=== PATIENT | male | born 1960 | race Caucasian/White ===

== ENCOUNTER → 2020-05-18 | Outpatient (CLI) | payer BC ==
--- NOTE | 2020-05-18 14:25 | US ---
EXAMINATION TYPE: US carotid duplex BILAT DATE OF EXAM: 05/18/2020 COMPARISON: CLINICAL HISTORY: H53.9 UNSPECIFIED VISUAL DISTURBANCE. Patient states having blurred vision. No HTN. EXAM MEASUREMENTS: RIGHT: Peak Systolic Velocity (PSV) cm/sec ----- Right CCA: 141.5 ----- Right ICA: 110.8 ----- Right ECA: 139.8 ICA/CCA ratio: 0.8 RIGHT: End Diastole cm/sec ----- Right CCA: 36.5 ----- Right ICA: 13.7 ----- Right ECA: 29.4 LEFT: Peak Systolic Velocity (PSV) cm/sec ----- Left CCA: 147.0 ----- Left ICA: 118.9 ----- Left ECA: 111.3 ICA/CCA ratio: 0.8 LEFT: End Diastole cm/sec ----- Left CCA: 42.6 ----- Left ICA: 43.0 ----- Left ECA: 19.2 VERTEBRALS (direction of flow): Right Vertebral: Antegrade Left Vertebral: Antegrade Rhythm: Normal No significant stenosis. Plaque seen in distal left CCA. No wall thickening. Elevated right distal CCA, Right ECA, left mid CCA and left distal CCA velocities. Grayscale, color Doppler, spectral Doppler imaging performed of the carotid arteries. Waveform analys is does not show significant stenosis of the proximal internal carotid arteries. There is atheromatou s change present within the carotid arteries. IMPRESSION: No hemodynamic significant stenosis of the proximal internal carotid arteries by Doppler criteria, an indirect measurement of carotid stenosis Criteria for Assigning % of Stenosis / Diameter reduction (Estimation based on the indirect measurements of the internal carotid artery velocities (ICA PSV). 1. Normal (no stenosis)=ICA PSV < 125 cm/s: ratio < 2.0: ICA EDV<40 cm/s. 2. Less than 50% stenosis=ICA PSV < 125 cm/s: ratio < 2.0: ICA EDV<40 cm/s. 3. 50 to 69% stenosis=ICA PSV of 125 to 230 cm/s: ration 2.0 ? 4.0: ICA EDV 40-100 cm/s. 4. Greater than 70% stenosis to near occlusion= ICA PSV > 230 cm/s: ratio > 4.0: ICA EDV > 100 cm/s. 5. Near occlusion= ICA PSV velocities may be low or undetectable: variable ratio and ICA EDV. 6. Total occlusion=unable to detect flow.
--- NOTE | 2020-05-19 10:00 | ECHOF ---
Referral Reason:H53.9 MEASUREMENTS -------- HEIGHT: 172.7 cm WEIGHT: 83.9 kg BP: 128/70 RVIDd: 3.0 cm (< 3.3) IVSd: 1.3 cm (0.6 - 1.1) LVIDd: 4.7 cm (3.9 - 5.3) LVPWd: 1.3 cm (0.6 - 1.1) IVSs: 1.5 cm LVIDs: 3.1 cm LVPWs: 1.8 cm LA Diam: 3.2 cm (2.7 - 3.8) LAESV Index (A-L): 19.52 ml/m Ao Diam: 3.4 cm (2.0 - 3.7) AV Cusp: 2.0 cm (1.5 - 2.6) MV EXCURSION: 17.918 mm (> 18.000) MV EF SLOPE: 118 mm/s (70 - 150) EPSS: 0.5 cm MV E Andre: 0.94 m/s MV DecT: 204 ms MV A Andre: 0.65 m/s MV E/A Ratio: 1.44 AR PHT: 664 ms RAP: 5.00 mmHg RVSP: 30.27 mmHg FINDINGS -------- Sinus rhythm. This was a technically good study. The left ventricular size is normal. There is mild concentric left ventricular hypertrophy. Overa ll left ventricular systolic function is normal with, an EF between 60 - 65 %. The right ventricle is normal in size. Normal LA size by volume 22+/-6 ml/m2. The right atrium is normal in size. Interatrial and interventricular septum intact. There is mild aortic valve sclerosis. There is mild aortic regurgitation. The mitral valve is normal. Mild tricuspid regurgitation present. Right ventricular systolic pressure is normal at < 35 mmHg. The pulmonic valve was not well visualized. The aortic root size is normal. Normal inferior vena cava with normal inspiratory collapse consistent with estimated right atrial pre ssure of 5 mmHg. There is no pericardial effusion. CONCLUSIONS -------- 1. The left ventricular size is normal. 2. There is mild concentric left ventricular hypertrophy. 3. Overall left ventricular systolic function is normal with, an EF between 60 - 65 %. 4. There is mild aortic valve sclerosis. 5. There is mild aortic regurgitation. 6. Mild tricuspid regurgitation present. 7. There is no pericardial effusion. [employer]: Ronda Thurston RDCS
== END ==
LOC: RADECHMAIN 12:08
PROVIDERS: ATTEND Family Medicine
DX: I08.2 Rheumatic disorders of both aortic and tricuspid valves (principal)
CPT/HCPCS: 93306; 93880

== ENCOUNTER 2020-05-23 10:22 | Day surgery (SDC) | payer BC ==
[2020-05-20 11:16] VITALS: BMI 28.1
[~2020-05-23 10:22] MED LIST: LIDOCAINE 1% (10MG/ML) FOR IV START INTRADERMA PRN
[2020-05-23 10:35] LABS: Glucose,Whole Blood 149 mg/dL (75-99)
[2020-05-23 10:37] VITALS: TEMP 98
[2020-05-23] MEDS: LACTATED RINGERS 1,000 ML IV SCH ×2 (10:50→11:39)
[2020-05-23] MEDS ORDERED: PROPOFOL 10 MG/ML 20 ML VIAL IV ONE (11:41)
[2020-05-23] MEDS ORDERED: LIDOCAINE 1% INJ 10MG/ML (20 ML MDV) ONE (11:41)
--- NOTE | 2020-05-23 12:30 | P.PCN ---
Date of Procedure: 05/23/20 Description of Procedure: Brief history: Patient is a pleasant 59-year-old male presenting for outpatient EGD and colonoscopy for evaluation of melena and screening for malignant neoplasm of the colon. Remote history of colonoscopy in the past. Patient previously has had blood per rectum which he attributes to fissure. No family history of colon cancer. He does report epigastric and periumbilical pain. Procedure performed: Esophagogastroduodenoscopy with biopsy Colonoscopy with polypectomy Estimated blood loss: Minimal. Preoperative diagnosis: Melena, screening for malignant neoplasm of the colon, epigastric and periumbilical pain, remote history of colonoscopy Anesthesia: MAC Procedure: After informed consent was obtained from the patient was brought into the endoscopy unit and IV sedation was administered by anesthesia under continuous monitoring. Initially upper endoscopy was done. The Olympus GF 190 video endoscope was inserted into the mouth and esophagus intubated without any difficulty and was gradually advanced into the stomach and duodenum and carefully examined. The bulb and second part of the duodenum appeared normal, with biopsies taken. The scope was then withdrawn into the stomach adequately insufflated with air and upon careful examination the antrum and body, cardia and fundus appeared normal, except for some mild scattered erythema with biopsies taken. The scope was then withdrawn into the esophagus. The GE junction was located at 40 cm to the incisors And biopsy. It appeared regular with no erythema erosions or ulcerations. Rest of the esophagus appeared normal. Patient tolerated the procedure well. At this time the patient continued to remain sedation. Initial digital rectal examination was normal. Olympus CF 190 video colonoscope was then inserted into the rectum and gradually advanced to the cecum without any difficulty. Careful examination was performed as the scope was gradually being withdrawn. The prep was excellent. The cecum, ascending colon, transverse colon, descending colon, sigmoid colon and rectum appeared normal. 2 diminutive polyps measuring 1-2 mm in size removed from the transverse colon and descending colon with cold forcep polypectomy. 2 flat polyps removed with cold snare polypectomy from the splenic flexure measuring 4 mm in size and the sigmoid colon measuring 5 mm in size. Retroflexion was performed in the rectum and no lesions were noted, Low-grade internal hemorrhoids. Patient tolerated the procedure well. Impression: 1. Mild gastritis. Biopsies of the duodenum, antrum body and GE junction. 2. 2 polyps removed with cold snare polypectomy from the splenic flexure and sig moid colon. 2 diminutive polyps removed with cold forcep polypectomy from the transverse colon and descending colon. Low-grade internal hemorrhoids. Recommendations: Findings of this examination were discussed with the patient as well as his family. Okay to resume diet. Okay to resume medications. Await pathology from biopsies and polypectomy. Follow-up with primary care physician as previously scheduled.
[2020-05-23 12:49] VITALS: BP 126/79; PULSE 53; RESP 20
== END 2020-05-23 12:55 | disposition home or self-care (01) ==
LOC: ORWHC2ENDO 10:22
PROVIDERS: ATTEND Internal Medicine
DX: K20.90 Esophagitis, unspecified without bleeding (principal); K29.70 Gastritis, unspecified, without bleeding; D12.4 Benign neoplasm of descending colon; D12.5 Benign neoplasm of sigmoid colon; D12.3 Benign neoplasm of transverse colon; K64.8 Other hemorrhoids; K92.1 Melena; R10.13 Epigastric pain; E78.5 Hyperlipidemia, unspecified; I25.2 Old myocardial infarction; F17.210 Nicotine dependence, cigarettes, uncomplicated; Z88.1 Allergy status to other antibiotic agents; Z79.899 Other long term (current) drug therapy
CPT/HCPCS: 88305; 45380; 45385; 43239; J2001; J2704

== ENCOUNTER 2021-07-22 19:16 | Emergency (ER) | payer BC, OTHER ==
[2021-07-22 19:21] VITALS: BP 134/80; PULSE 76; RESP 18; TEMP 98.3
== END 2021-07-22 19:47 ==
LOC: EC 19:16
DX: Z02.83 Encounter for blood-alcohol and blood-drug test (principal)
CPT/HCPCS: 99499

== ENCOUNTER → 2023-10-08 | Outpatient (CLI) | payer OTHER ==
--- NOTE | 2023-10-08 11:03 | XR ---
EXAM TYPE: LUMBAR SPINE X RAY SERIES COMPARISON: NONE HISTORY: Pain TECHNIQUE: 3 views are submitted. FINDINGS: Alignment is anatomic. The pedicles are intact. The transverse processes are intact. There is diff use thinning with multilevel hypertrophic and mild degenerative disc disease. There is multilevel fac et arthropathy with grade 1 anterolisthesis of L5 on S1. Vascular calcifications seen. IMPRESSION: 1. Multilevel mild hypertrophic degenerative disc disease. 2. Multilevel facet arthropathy lower lumbar spine with grade 1 anterolisthesis L5-S1.
== END | disposition home or self-care (01) ==
LOC: RADXRMAIN 10:33
PROVIDERS: ATTEND Family Medicine
DX: M51.36 Other intervertebral disc degeneration, lumbar region (principal); M43.16 Spondylolisthesis, lumbar region; M43.17 Spondylolisthesis, lumbosacral region; M47.817 Spondylosis without myelopathy or radiculopathy, lumbosacral region
CPT/HCPCS: 72100